=== PATIENT | male | born 1950 ===

== ENCOUNTER → 2021-05-09 13:47 | Outpatient (CLI) | payer MEDICARE, OTHER, SELFPAY ==
[2021-05-09 15:55] LABS: COVID19 -Nasal RAPID Negative (Negative)
== END ==
PROVIDERS: Visit Provider Family Medicine Sleep Medicine
DX: Z20.822 Contact with and (suspected) exposure to COVID-19 (principal)
CPT/HCPCS: 87635; C9803

== ENCOUNTER 2021-05-12 13:31 | Day surgery (SDC) | payer MEDICARE, OTHER, SELFPAY ==
[2021-05-12 14:17] VITALS: BP 143/87; PULSE 79; RESP 16; TEMP 36.3; O2SAT 98; BMI 35.2
[2021-05-12] MEDS: LACTATED RINGERS 1,000 ML 42 ML IV ×2 (14:37→17:22)
--- NOTE | 2021-05-12 15:26 | PM.OP.1 ---
Operative Date/Time/Diagnoses Date of procedure: 05/12/21 Time of procedure: 19:12 Pre-op diagnosis: Left olecranon fracture Post-op diagnosis: same Procedure & Clinicians Procedure: Left olecranon fracture open reduction internal fixation Same procedure as scheduled: Yes Indications: This is a 70-year-old gentleman who fell in a [place] a couple of weeks ago and sustained a left olecranon fracture. He tested positive for COVID and was trapped in a [place] for 10 days he now comes in for repair. Surgeon: Bonnie No Education Technician: Kale Silva Anesthesia Type: General Operative Notes Findings: Grossly displaced left olecranon fracture, stable fixation, soft but adequate bone, adequate reduction Closure Type: primary Specimen(s): none sent Prosthetic devices, grafts, tissues, transplants, or devices: No and Nephew olecranon plate 2 hole Estimated Blood Loss (mL): 50 Blood products transfused: none Tourniquet time (min): 65 Procedure in detail: Patient is brought the operating room he underwent induction of a general anesthesia. His left upper extremity is prepped draped standard sterile fashion. High arm tourniquet was elevated after giving appropriate antibiotics and then doing a time-out. An incision was made over the olecranon dissection was carried out through skin and subcutaneous tissues. Gelpi retractors were placed. The olecranon was exposed. Fracture was noted to be grossly displaced with essentially no healing or callus in the fracture site. Dissection was carried out down into the fracture site was meticulously cleaned and then the fracture was carefully reduced using bone reduction clamps. A reconstructive plate was selected in applied with hand compression to the bone and then the fracture was fixed with 2 K-wires for provisional fixation and then the fracture was fixed with multiple screws including screws into the anterior aspect of the olecranon with 2 long screws. Screw position length and alignment was meticulously checked with the C-arm. He did have a stiff shoulder which made positioning and imaging somewhat more technically demanding. Good quality reduction and fixation was achieved. X-rays showed acceptable alignment. The wound was meticulously irrigated with normal saline. Marcaine was carefully injected. The wound was closed with interrupted Vicryl and Monocryl and surgical glue. The wound was dressed sterilely with an Aquacel. Patient tolerated the procedure well transferred to recovery room in satisfactory condition. Complications: none Post-operative Condition: stable Disposition: Acute Care Plan for aftercare: Keep splint on full-time. Okay to do wrist hand and shoulder range of motion, return to clinic in 10-14 days for x-rays out of his splint. Potentially could do some light range of motion exercises if x-rays are stable and show adequate alignment at follow-up. No lifting left upper extremity for 6 weeks postoperatively.
--- NOTE | 2021-05-12 15:26 | PM.PREOP ---
Pre-operative Note COVID-19 COVID-19 status: Negative Result date/Date tested (Pos, Neg/Pending): 05/11/21 Criteria for continued procedure: Expected advancement of disease process, Possibility delay results in more complex future surgery or treatment, Increased loss of function and Continuing or worsening of significant or severe pain Interval Note History & Physical reviewed/Exam performed by Physician: Yes Changes to H&P: No
[2021-05-12] MEDS: CEFAZOLIN 2 GM/20 ML SYRINGE IV (15:59)
--- NOTE | 2021-05-12 16:12 | SUR.OPER ---
Supine on padded OR bed, head on pillow, right arm secured on padded arm boards at <90 degrees abduction, left arm draped free across chest, legs uncrossed, safety belt at thigh, tape over blanket over lower legs.
[2021-05-12] MEDS: BUPIVACAINE 0.5% W/ EPI (PF) 30 ML VIAL INJ (16:23)
[2021-05-12 17:48] VITALS: BP 158/97; PULSE 79; RESP 10; TEMP 36.2; O2SAT 96
[2021-05-12 17:53] VITALS: BP 148/75; PULSE 79; RESP 11; TEMP 36.4; O2SAT 99
[2021-05-12 18:06] VITALS: BP 151/83; PULSE 76; RESP 12; TEMP 36.4; O2SAT 94
[2021-05-12] MEDS: fentaNYL 100 MCG/2 ML INJ IV (18:06)
[2021-05-12] MEDS: OXYCODONE IR 5 MG TABLET PO ×2 (18:07→18:27)
[2021-05-12] MEDS: ONDANSETRON 4 MG/2 ML INJ IV (18:14)
[2021-05-12 18:37] VITALS: BP 149/95; PULSE 78; RESP 10; TEMP 36.4; O2SAT 95
== END 2021-05-12 19:06 | disposition home or self-care (01) ==
PROVIDERS: PCP Internal Medicine; Referring Provider Orthopaedic Surgery; Visit Provider Orthopaedic Surgery
PROC: 0RSM04Z Reposition Left Elbow Joint with Internal Fixation Device, Open Approach (ICD-10-PCS; CPT 24685; principal; 2021-05-12 15:15)
DX: S52.022A Displaced fracture of olecranon process without intraarticular extension of left ulna, initial encounter for closed fracture (principal); W19.XXXA Unspecified fall, initial encounter; I10 Essential (primary) hypertension; Z86.16 Personal history of COVID-19
CPT/HCPCS: 24685; J0690; J1100; J2405; J2704; J3010

== ENCOUNTER 2022-10-29 10:59 | Emergency (ER) | payer MEDICARE, OTHER, SELFPAY ==
[2022-10-29 11:03] VITALS: BP 121/72; PULSE 82; RESP 20; TEMP 36.8; O2SAT 97; BMI 36.2
--- NOTE | 2022-10-29 11:20 | ED.ABDPAIN ---
HPI - Abdominal Pain <Raul Yeh PA-C - Last Filed: 10/29/22 11:42> General Chief Complaint: Abdominal Pain Stated Complaint: thinks impacted bowel Time Seen by Provider: 10/29/22 11:16 Source: patient Mode of arrival: Ambulatory History of Present Illness HPI narrative: This is a 72-year-old male presents emergency department due to constipation over the last couple of weeks. He uses a suppository 1 week ago and had a bowel movement. Still passing gas. Patient suspects that this is due to starting the carnivore diet and eating exclusively meat eggs and cheese for the past 2 weeks. patient denies any pain. He denies any nausea or vomiting or chest pain fevers or any other concerning signs or symptoms. Patient states the he has a twinge of the sensation of needing to have a bowel movement but has been unable to do so. Related Data Home Medications Medication Instructions Recorded Confirmed alprazolam 0.5 mg tablet (Xanax) 0.5 mg PO ##0 12/16/16 citalopram 10 mg tablet 20 mg PO QDAY ##0 12/16/16 gabapentin 300 mg capsule 300 mg PO TID ##0 12/16/16 (Neurontin) levothyroxine 112 mcg tablet 0.25 mg PO QDAY ##0 12/16/16 tramadol 50 mg tablet 50 mg PO QDAY ##0 12/16/16 bupropion HCl 150 mg tablet,12 hr 150 mg PO 05/12/21 sustained-release metoprolol succinate 25 mg 25 mg PO BEDTIME 05/12/21 05/12/21 tablet,extended release 24 hr Previous Rx's Medication Instructions Recorded oxycodone 10 mg tablet 10 mg PO Q8H PRN pain #10 tabs 05/12/21 oxycodone 5 mg tablet 5 mg PO Q6H PRN pain #30 tabs 05/12/21 bisacodyl 10 mg rectal suppository 10 mg MO .daily prn 12 days #12 ea 10/29/22 polyethylene glycol 3350 17 17 g PO BID 10 days #340 grams 10/29/22 gram/dose oral powder (Miralax) psyllium husk 0.4 gram capsule 0.4 g PO DAILY #20 caps 10/29/22 (Metamucil) sennosides 8.6 mg capsule (senna) 8.6 mg PO BID 10 days #20 caps 10/29/22 Allergies Allergy/AdvReac Type Severity Reaction Status Date / Time morphine [MORPHINE] Allergy Unknown Verified 05/12/21 13:51 Review of Systems <Raul Yeh PA-C - Last Filed: 10/29/22 11:42> Review of Systems Narrative: GENERAL: Denies chills, fatigue, malaise, fever, sweats. HEENT: Denies sinus pain, ear pain, sore throat, difficulty swallowing, dizziness. RESPIRATORY: Denies dyspnea, cough, wheezing, hemoptysis, sputum. CARDIOVASCULAR: Denies chest pain, palpitations, orthopnea, edema, GASTROINTESTINAL: Reports constipationDenies nausea, vomiting, abdominal pain, diarrhea, , melena. : Denies dysuria, frequency, incontinence, hematuria, urinary retention. MUSCULOSKELETAL: denies weakness, joint pain, or bony pain SKIN: Denies rash, skin lesions, or other NEUROLOGIC: Denies weakness, headache, numbness, change in speech, confusion, seizures, incoordination. PSYCHIATRIC: No concerning psychosocial issues. 12 point review of systems is negative except for those stated above Patient History <Raul Yeh PA-C - Last Filed: 10/29/22 11:42> Social History household members: spouse Smoking Status: Never smoker alcohol intake: never Smoking Status: Never smoker Substance Use Type: does not use Exam <Raul Yeh PA-C - Last Filed: 10/29/22 11:42> Narrative Exam Narrative: GENERAL: Well-developed patient, in mild distress. HEAD: Atraumatic. Normocephalic. EYES: Pupils equal round and reactive. Extraocular motions intact. No scleral icterus. No injection or drainage. ENT: Nose without bleeding, purulent drainage. Throat without erythema, tonsillar hypertrophy or exudate. Airway patent. NECK: Trachea midline. Non tender CARDIOVASCULAR: Regular rate and rhythm without murmurs, gallops, or rubs. RESPIRATORY: Clear to auscultation. Breath sounds equal bilaterally. No wheezes, rales, or rhonchi. GASTROINTESTINAL: Abdomen soft, non-tender, nondistended. EXTREMITIES: No edema or joint tenderness. BACK: Nontender without deformity or crepitance. No flank tenderness. NEURO: AOx3. SKIN: No rash or erythema of visible areas Initial Vital Signs Initial Vital Signs: Vital Signs Temperature 98.3 F 10/29/22 11:03 Pulse Rate 82 10/29/22 11:03 Respiratory Rate 20 10/29/22 11:03 Blood Pressure 121/72 10/29/22 11:03 Pulse Oximetry 97 10/29/22 11:03 Oxygen Delivery Method Room Air 10/29/22 11:03 <Ceferino Xavier DO - Last Filed: 10/29/22 11:52> Initial Vital Signs Initial Vital Signs: Vital Signs Temperature 98.3 F 10/29/22 11:03 Pulse Rate 82 10/29/22 11:03 Respiratory Rate 20 10/29/22 11:03 Blood Pressure 121/72 10/29/22 11:03 Pulse Oximetry 97 10/29/22 11:03 Oxygen Delivery Method Room Air 10/29/22 11:03 Course <Raul Yeh PA-C - Last Filed: 10/29/22 11:42> Vital Signs Vital signs: Vital Signs - 8 hr 10/29/22 11:03 Temperature 98.3 F Pulse Rate 82 Respiratory Rate 20 Blood Pressure 121/72 Pulse Oximetry 97 Oxygen Delivery Method Room Air <DO Cesar Orellana Last Filed: 10/29/22 11:52> Vital Signs Vital signs: Vital Signs - 8 hr 10/29/22 11:03 Temperature 98.3 F Pulse Rate 82 Respiratory Rate 20 Blood Pressure 121/72 Pulse Oximetry 97 Oxygen Delivery Method Room Air MDM - Abdominal Pain <Raul Yeh PA-C - Last Filed: 10/29/22 11:42> MDM Narrative Medical decision making narrative: MDM * differential diagnosis includes but not limited to Constipation, small-bowel obstruction * Prior records reviewed: patient has not been here in the past * My lab interpretation: none obtained * My imaging interpretation: none obtained * Clinical Decision Rules/Scores evaluated: None * Independent discussions with: None ED Course: This is a 72-year-old male presents to the emergency department due to suspected constipation after starting a new diet. Shared decision-making was utilized and we will attempt a trial of laxatives to take at home in the hopes that he is able to have a bowel movement. He is not report any abdominal pain, is still passing gas, and denies any nausea or vomiting and low concern for small bowel obstruction at this time. Shared Decision Making: Discussed plan with the patient who is comfortable with the plan. Social Considerations: None Disposition: Discharged home Discharge Plan Departure Patient Disposition: Home Clinical Impression: Constipation Instructions: DI for Constipation Activity Restrictions/Additional Instructions: Thank you for coming to the [facility] Emergency Department today. As we discussed suspect you are constipated from your recent change in diet. Please take the medications I have prescribed as prescribed and I suspect this should be making him feel much better soon. If you have not enema at home you are also welcome to use that. Also recommend drink plenty of water as well as increasing your intake of vegetables and fiber to help with the bowel movements. Please take medications as prescribed. I hope you feel better soon. Prescriptions: New polyethylene glycol 3350 [Miralax] 17 gram/dose powder 17 g PO BID 10 Days Qty: 340 0RF senna 8.6 mg capsule 8.6 mg PO BID 10 Days Qty: 20 0RF bisacodyl 10 mg suppository 10 mg MO .daily prn 12 Days Qty: 12 0RF psyllium husk [Metamucil] 0.4 gram capsule 0.4 g PO DAILY Qty: 20 0RF No Action citalopram 10 MG tablet 20 mg PO QDAY Qty: 0 Patient Comments: for depression tramadol 50 MG tablet 50 mg PO QDAY Qty: 0 gabapentin [Neurontin] 300 MG capsule 300 mg PO TID Qty: 0 levothyroxine 112 MCG tablet 0.25 mg PO QDAY Qty: 0 alprazolam [Xanax] 0.5 MG tablet 0.5 mg PO Qty: 0 bupropion HCl 150 mg tablet sustained-release 12 hr 150 mg PO metoprolol succinate 25 mg tablet extended release 24 hr 25 mg PO BEDTIME oxycodone 5 mg tablet 5 mg PO Q6H PRN (Reason: pain) Qty: 30 0RF oxycodone 10 mg tablet 10 mg PO Q8H PRN (Reason: pain) Qty: 10 0RF Referrals: Tigre Glez MD [Primary Care Provider] - Stand Alone Forms: Patient Portal/API <Ceferino Xavier DO - Last Filed: 10/29/22 11:52> [facility] Dr Xavier Co-Sign Statement: I was available for consultation during this patient's emergency department visit. This chart is signed by myself for administrative purposes only. I did not have direct contact with this patient during this visit. They were seen independently by the APC.
== END 2022-10-29 11:50 | disposition home or self-care (01) ==
PROVIDERS: Emergency Provider Physician Assistant Medical; PCP Internal Medicine
DX: K59.00 Constipation, unspecified (principal); R10.9 Unspecified abdominal pain
CPT/HCPCS: 99281